=== PATIENT | male | born 1980 ===

== ENCOUNTER 2020-07-26 00:42 | Emergency (ER) | payer OTHER ==
--- NOTE | 2020-07-26 01:10 | ER Document Report ---
ED General - General Chief Complaint: Shortness Of Breath Stated Complaint: SHORTNESS OF BREATH Time Seen by Provider: 07/26/20 01:08 - HPI Notes: 39-year-old male presents with shortness of breath and a flulike illness. Patient states that he was recently in [place] and returned on Friday, he developed symptoms on 07/23/2020. He has been having a dry nonproductive cough, shortness of breath when he bends down to pick something up, congestion, myalgias, and multiple episodes of diarrhea per day. He was febrile with EMS 102.7, he received 975 mg of Tylenol prior to evaluation. EMS rapid Covid test was positive. Patient reports he is otherwise healthy, he has no major medical problems, he is a non-smoker. - Related Data Allergies/Adverse Reactions: No Known Allergies Allergy (Unverified 07/26/20 01:03) Past Medical History - General Information source: Patient - Social History Smoking Status: Never Smoker Chew tobacco use (# tins/day): No Frequency of alcohol use: None Drug Abuse: None Family History: Hypertension Review of Systems - Review of Systems Constitutional: Chills, Fever EENT: denies: Throat pain Cardiovascular: denies: Chest pain Respiratory: Cough, Short of breath Gastrointestinal: Diarrhea. denies: Abdominal pain Genitourinary: No symptoms reported Male Genitourinary: No symptoms reported Musculoskeletal: Muscle pain Skin: No symptoms reported Hematologic/Lymphatic: No symptoms reported Neurological/Psychological: No symptoms reported Physical Exam - Vital signs Vitals: Temp Pulse BP Pulse Ox 100.3 F 110 H 154/94 H 93 07/26/20 00:52 07/26/20 00:52 07/26/20 00:52 07/26/20 00:52 - General General appearance: Appears well, Alert In distress: None - HEENT Head: Normocephalic, Atraumatic Eyes: No: Scleral icterus Extraocular movements intact: Yes Pupils: PERRL - Respiratory Respiratory status: No: Labored, Tachypnea Breath sounds: Normal. No: Decreased air movement - Cardiovascular Rhythm: Regular, Tachycardia Heart sounds: Normal auscultation - Abdominal Inspection: Obese Tenderness: Nontender - Extremities General upper extremity: Normal ROM General lower extremity: Normal ROM. No: Edema - Neurological Neuro grossly intact: Yes Cognition: Normal Orientation: AAOx4 - Psychological Associated symptoms: Normal affect - Skin Skin Temperature: Warm Course - Re-evaluation Re-evalutation: 39-year-old male with symptoms consistent with viral infection, found to be positive for Covid via EMS rapid antigen test. Received Tylenol prior to arrival, expect fever to further downtrend. He is overall alert and nontoxic- appearing, his lungs are clear with good air movement, abdomen is soft. A chest x-ray was obtained which showed bilateral infiltrates consistent with Covid infection. Patient was given medications for symptomatic control on the emergency department. We discussed continued symptomatic care at home including vitamin/mineral supplementation. He verbalized understanding. Return precautions given, stable at time of discharge. - Vital Signs Vital signs: Temp Pulse Resp BP Pulse Ox 99.5 F 99 18 146/90 H 94 07/26/20 03:49 07/26/20 03:49 07/26/20 03:49 07/26/20 03:49 07/26/20 03:49 - Laboratory Results Critical Laboratory Results Reviewed: No Critical Results - Radiology Results Critical Radiology Results Reviewed: No Critical Results Discharge - Discharge Clinical Impression: COVID-19 virus infection Disposition: HOME, SELF-CARE Instructions: COVID-19 Guidance for Persons Under Investigation Additional Instructions: Continue supportive care at home. This consists of Tylenol, Motrin, Mucinex, Robitussin, etc. Be sure to drink plenty of fluids. You may also begin use of vitamin C, vitamin D and zinc. These can often be found in a multivitamin or can use products such as Zicam or Emergency-C. You may use the albuterol inhaler for shortness of breath. Return to the emergency department for any concerning or worsening symptoms.
[2020-07-26] MEDS ORDERED: GUAIFENESIN/D-METHORPHAN (200-20 MG) SYRUP 10 ML PO ONE ×2 (01:26→03:30)
[2020-07-26] MEDS ORDERED: GUAIFENESIN 600 MG TABLET.SA PO ONE ×2 (01:26→04:00)
[2020-07-26] MEDS ORDERED: IBUPROFEN 800 MG TABLET PO ONE ×2 (01:26→03:30)
[2020-07-26] MEDS ORDERED: ALBUTEROL SULFATE HFA (90 MCG/PUFF) 8 GM MDI (1 MDI/ER DISP) IH ONE ×2 (01:28→03:30)
--- NOTE | 2020-07-26 02:17 | RADIOLOGY REPORT (SQ) ---
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 Comparison: None available Findings: The cardiomediastinal silhouette is enlarged. No pneumothorax is seen. There bilateral interstitial airspace opacities, most pronounced within the lung bases. There is blunting of the costophrenic angle suggesting trace bilateral effusions. There is elevation of the right hemidiaphragm. Impression: There bilateral interstitial airspace opacities most pronounced at the lung bases. These may reflect developing infection.
[2020-07-26 05:15] VITALS: BP 141/88
== END 2020-07-26 06:10 | disposition home or self-care (01) ==
LOC: ER 00:42
DX: U07.1 COVID-19 (principal); R06.02 Shortness of breath
CPT/HCPCS: 99284; 87635; 71045; J3490 ×2; C9803

== ENCOUNTER 2020-07-26 15:54 | Inpatient (IN) | payer OTHER ==
[2020-07-26] MEDS ORDERED: CEFTRIAXONE 1 GM/D5W RTU 1 GM/50 ML RTUPB IV ONE (17:19)
[2020-07-26] MEDS ORDERED: ACETAMINOPHEN 325 MG TABLET PO ONE (17:19)
[2020-07-26] MEDS ORDERED: NORMAL SALINE IV ONE (17:19)
[2020-07-26] MEDS ORDERED: KETOROLAC TROMETHAMINE INJ/PF 30 MG/1 ML SDV IV ONE (17:20)
--- NOTE | 2020-07-26 17:23 | ER Document Report ---
ED Medical Screen (RME) - General Chief Complaint: Shortness Of Breath Stated Complaint: SHORTNESS OF BREATH Time Seen by Provider: 07/26/20 17:18 Information source: Patient - HPI Patient complains to provider of: Chest pain, shortness of breath Notes: 07/26/20 17:22 Patient here with complaints of chest pain, cough, shortness of breath, fever. He states he was seen in the ER last evening and had a chest x-ray but did not get the results of the chest x-ray and was discharged home. Covid was pending. In reviewing his records, patient noted to have bilateral interstitial airway disease on x-ray. Patient reports he has a prior history of blood clots. Not on blood thinners at this time. Exam: Patient with tachypnea in moderate distress. Tachycardia. Coarse breath sounds throughout. Skin warm and dry. An initial examination was made on the patient as part of the triage process, and it was determined a more comprehensive evaluation was necessary. Initial orders were placed and patient was transferred to another provider in the ED who assumed care and finished evaluation and plan. Based on the patient's vital signs including fever, tachycardia, tachypnea with pneumonia on yesterday's x-ray, I have initiated sepsis protocol. - Related Data Allergies/Adverse Reactions: No Known Allergies Allergy (Unverified 07/26/20 01:03) Physical Exam - Vital signs Vitals: Temp Pulse Resp BP Pulse Ox 103.2 F H 129 H 32 H 168/101 H 92 07/26/20 17:01 07/26/20 17:01 07/26/20 17:01 07/26/20 17:01 07/26/20 17:01 Course - Vital Signs Vital signs: Temp Pulse Resp BP Pulse Ox 103.2 F H 129 H 32 H 168/101 H 92 07/26/20 17:01 07/26/20 17:01 07/26/20 17:01 07/26/20 17:01 07/26/20 17:01
[2020-07-26 18:47] LABS: ABSOLUTE LYMPHOCYTES (AUTO) 0.6 10^3/uL (0.5-4.7); ABSOLUTE MONOCYTES (AUTO) 0.4 10^3/uL (0.1-1.4); ABSOLUTE NEUT (AUTO) 5.3 10^3/uL (1.7-8.2); BASOPHILS % (AUTO) 0.4 % (0-2); HEMATOCRIT 47.5 % (37.9-51.0); LYMPHOCYTES % (AUTO) 10.1 % (13-45); MEAN CORPUSCULAR HEMOGLOBIN 28.5 pg (27.0-33.4); MEAN CORPUSCULAR HGB CONC 33.7 g/dL (32.0-36.0); MEAN CORPUSCULAR VOLUME 85 fl (80-97); MONOCYTES % (AUTO) 6.6 % (3-13); RED BLOOD COUNT 5.62 10^6/uL (4.35-5.55); RED CELL DISTRIBUTION WIDTH 14.1 % (11.5-14.0); SEGMENTED NEUTROPHILS % (AUTO) 82.9 % (42-78); TOTAL CELLS COUNTED % (AUTO) 100 %; WHITE BLOOD COUNT 6.3 10^3/uL (4.0-10.5)
[2020-07-26 18:52] LABS: INTERNATIONAL RATION (INR) 1.07; PARTIAL THROMBOPLASTIN TIME 32.3 SEC (23.5-35.8); PROTHROMBIN TIME 14.1 SEC (11.4-15.4)
[2020-07-26 19:00] LABS: ALBUMIN 3.7 g/dL (3.5-5.0); ALKALINE PHOSPHATASE 75 U/L (38-126); ANION GAP 6 (5-19); ASPARTATE AMINO TRANSFERASE 59 U/L (17-59); BILIRUBIN,DIRECT 0.4 mg/dL (0.0-0.4); BLOOD UREA NITROGEN 16 mg/dL (7-20); CALCIUM 8.5 mg/dL (8.4-10.2); CARBON DIOXIDE 32 mmol/L (22-30); CHLORIDE 99 mmol/L (98-107); GLUCOSE 115 mg/dL (75-110); POTASSIUM 4.8 mmol/L (3.6-5.0); TOTAL PROTEIN 7.5 g/dL (6.3-8.2)
[2020-07-26 19:17] LABS: PLATELET COUNT 91 10^3/uL (150-450)
--- NOTE | 2020-07-26 19:53 | RADIOLOGY REPORT (SQ) ---
EXAM DESCRIPTION: CTA CHEST IMAGES COMPLETED DATE/TIME: 07/26/2020 7:34 pm REASON FOR STUDY: Chest pain, shortness of breath, tachycardia COMPARISON: None. TECHNIQUE: CT scan of the chest performed using helical scanning technique with dynamic intravenous contrast injection. Images reviewed with lung, soft tissue and bone windows. Reconstructed coronal and sagittal MPR images reviewed. Additional 3 dimensional post-processing performed to develop Maximal Intensity Projection images ([place] P). All images stored on PACS. All CT scanners at this facility use dose modulation, iterative reconstruction, and/or weight based d osing when appropriate to reduce radiation dose to as low as reasonably achievable (ALARA). [facility]: Dose Right [facility]: CareDose [facility]: Dose Right [facility]: Teradose 4D [facility]: [employer] CONTRAST TYPE AND DOSE: contrast/concentration: Isovue 350.00 mmol/ml; Total Contrast Delivered: 31. 6 ml; Total Saline Delivered: 70.7 ml Contrast bolus adequate for pulmonary arteries and aorta. RENAL FUNCTION: None required. The patient is less than 50 years old. RADIATION DOSE: CT Rad equipment meets quality standard of care and radiation dose reduction techniq ues were employed. CTDIvol: 15.0 - 15.5 mGy. DLP: 601 mGy-cm. . LIMITATIONS: None. FINDINGS: LUNGS AND PLEURA: Bilateral areas of ground-glass opacification most prominent in the lowe r lobes. In the upper lung navarro these infiltrates are generally peripheral. AORTA AND GREAT VESSELS: No aneurysm. No dissection. HEART: No pericardial effusion. No significant coronary artery calcifications. PULMONARY ARTERIES: No emboli visualized in the main pulmonary arteries or the segmental branches. HILAR AND MEDIASTINAL STRUCTURES: No identified masses or abnormal nodes. HARDWARE: None in the chest. UPPER ABDOMEN: No significant findings. Limited exam. THYROID AND OTHER SOFT TISSUES: No masses. No adenopathy. BONES: No acute or significant finding. 3D MIPS: Confirm above findings. OTHER: No other significant finding. IMPRESSION: 1. There is no pulmonary embolus. There is no aortic aneurysm or dissection. 2. Bilateral ground-glass opacification suggesting an atypical infectious/ inflammatory process such as COVID-19 pneumonia. COMMENT: Quality ID # [id number]: Final reports with documentation of one or more dose reduction techniques (e.g., Automated exposure control, adjustment of the mA and/or kV according to patient size, use of iterative reconstruction technique) TECHNICAL DOCUMENTATION: JOB ID: [id number] 2010 [facility] [employer]- All Rights Reserved Reading location - IP/workstation name: [email or web address]
[2020-07-26] MEDS ORDERED: DEXAMETHASONE SOD PHOS INJ 10 MG/1 ML VIAL IV ONE (23:00)
--- NOTE | 2020-07-26 23:06 | ER Document Report ---
ED Respiratory Problem - General Chief Complaint: Shortness Of Breath Stated Complaint: SHORTNESS OF BREATH Time Seen by Provider: 07/26/20 17:18 Mode of Arrival: Medic Information source: Patient Notes: 39-year-old male presented to ED for complaint of chest pain cough congestion fever. He was seen during the night in the ED a chest x-ray was done and he was discharged home with Covid pending. He does have Covid type markings on lungs. He was Covid positive via EMS on the way back to the emergency room. He temp was 103 when he came up with septic work-up was started. 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 Troponin was negative lactic acids were negative. He is afebrile at this time. He does have an albuterol inhaler at home we will give him a treatment with some steroids time to continue using his albuterol inhaler to use Pepcid vitamin D3 and increase his p.o. fluids. He is to return to the ED for any increase in symptoms or difficulty breathing. Constitutional: Negative for fever. HENT: Negative for sore throat. Eyes: Negative for visual changes. Cardiovascular: As he is having chest pain due to cough. He was seen in triage that started a septic work-up as well as a CTA due to the chest pain and the fever 103 and his prior history of DVTs. He states he is not having chest pain at this time. When encouraged to slow his breathing he can breathe down at 1819 otherwise the stomach varies he is a very obese man. He states he does have some undiagnosed sleep apnea. He states he has been using his albuterol but does not seem to have any change with that. CT showed no pulmonary emboli no aortic aneurysm or dissection and bilateral grass ground opacity suggesting COVID-19 pneumonia. Respiratory: Patient is short of breath tachypneic but is able to feel his breathing actually feels much better when he does. Gastrointestinal: Negative for abdominal pain, vomiting or diarrhea. Genitourinary: Negative for dysuria. Musculoskeletal: Negative for back pain. Skin: Negative for rash. Neurological: Negative for headaches, weakness or numbness. 10 point ROS negative except as marked above and in HPI. VITAL SIGNS: Within normal limits. GENERAL: No acute distress, non-toxic appearance. HEAD: Normal with no signs of head trauma. EYES: PERRLA, EOMI, conjunctiva normal, no discharge. EARS: Hearing grossly intact. NOSE: Normal. THROAT: Oropharynx is normal. NECK: Normal range of motion, no tenderness, supple, no lymphadenopathy, No adenopathy, no JVD. CHEST: Mild rhonchi with throughout no wheezes. Afebrile at this time CT shows Covid pneumonia. CARDIAC: Regular rate and rhythm. S1 and S2, without murmurs, gallops, or r ubs. VASCULAR: No Edema. Peripheral pulses normal and equal in all extremities. ABDOMEN: Normal and soft with no tenderness, no masses or pulsatile masses. GASTROINTESTINAL: Bowel sounds normal GENITOURINARY: Normal, No tenderness LYMPATHTIC: No lymphadenopathy noted. MUSCULOSKELETAL: Good range of motion of all major joints. Extremities without clubbing, cyanosis or edema. NEUROLOGICAL: Alert and oriented x 3. No focal sensory or strength deficits. Speech normal. Follows commands appropriately. PSYCHIATRIC: Normal Affect, judgement and mood. SKIN: Normal appearance with no rashes or lesions. - HPI Patient complains to provider of: Chest pain, Cough Onset: Yesterday Duration: Continuous Initiating Event: Other - seen last night for same Quality of pain: Achy Severity: Moderate Pain Level: 3 Cough: Nonproductive Sputum amount: None Associated symptoms: Congestion, Cough, Fever, Runny nose, Sinus pain/pressure, Other - body aches Similar symptoms previously: Yes Recently seen / treated by doctor: Yes - Related Data Allergies/Adverse Reactions: No Known Allergies Allergy (Unverified 07/26/20 01:03) Past Medical History - General Information source: Patient - Social History Smoking Status: Never Smoker Frequency of alcohol use: None Drug Abuse: None Lives with: Family Family History: Hypertension Patient has suicidal ideation: No Patient has homicidal ideation: No Physical Exam - Vital signs Vitals: Temp Pulse Resp BP Pulse Ox 103.2 F H 129 H 32 H 168/101 H 92 07/26/20 17:01 07/26/20 17:01 07/26/20 17:01 07/26/20 17:01 07/26/20 17:01 Course - Re-evaluation Re-evalutation: 07/27/20 08:[address] Gordon concerning this patient's shortness of breath in the setting every time I got him up to move. He was tachypneic with tachycardia. He was diagnosed with Covid yesterday and discharged home and then came in again with severe shortness of breath and temp over 103. He was treated with Tylenol septic work-up completed which was negative and when I attempted to get him up to walking you be able to discharge him home he became very tachypneic with respiratory rate of 40 O2 sats in the 80s and was not able to maintain a O2 sat while trying to walk. I did place him on 2 L of O2 around 950 and called the hospitalist Dr Mancia to have him admitted. He states he would come down and evaluate him in admitting. When he did come down to evaluate him he. He stated that he would put him in on observation and that the patient did not need the oxygen. So the oxygen was taken off. Patient was admitted to hospitalist services. - Vital Signs Vital signs: Temp Pulse Resp BP Pulse Ox 98.9 F 105 H 42 H 158/98 H 98 07/27/20 04:46 07/27/20 04:46 07/27/20 04:46 07/27/20 04:46 07/27/20 04:46 - Laboratory Results Result Diagrams: 07/27/20 06:25 07/27/20 06:25 Laboratory Results Interpreted: 07/26/20 07/26/20 17:51 17:51 RBC 5.62 H RDW 14.1 H Plt Count 91 L Lymph % (Auto) 10.1 L Seg Neutrophils % 82.9 H Sodium 136.7 L Carbon Dioxide 32 H Glucose 115 H ALT 58 H Critical Laboratory Results Reviewed: No Critical Results - Radiology Results Critical Radiology Results Reviewed: No Critical Results Discharge - Discharge Clinical Impression: COVID-19 virus infection, Pneumonia due to COVID-19 virus Disposition: ADMITTED INPATIENT Admitting Provider: Blanche (Hospitalist) Unit Admitted: Medical Floor
--- NOTE | 2020-07-26 23:28 | EKG REPORT ---
SEVERITY:- OTHERWISE NORMAL ECG - SINUS TACHYCARDIA : Confirmed by: Kraig Galdamez 26-Jul-2020 23:27:36
[2020-07-27] MEDS ORDERED: LORAZEPAM INJ 2 MG/1 ML VIAL IV ONE (01:09)
[2020-07-27] MEDS ORDERED: ONDANSETRON 4 MG TAB.RAPDIS PO PRN (01:34)
[2020-07-27] MEDS ORDERED: ONDANSETRON HCL INJ/PF 4 MG/2 ML SDV IV PRN (01:34)
[2020-07-27] MEDS ORDERED: ACETAMINOPHEN 325 MG TABLET PO PRN (01:34)
[2020-07-27] MEDS ORDERED: IVERMECTIN 3 MG TABLET PO SCH (01:45)
[2020-07-27] MEDS ORDERED: DOXYCYCLINE HYCLATE INJ 100 MG VIAL IV PRN (01:45)
[2020-07-27] MEDS ORDERED: DOXYCYCLINE HYCLATE 100 MG in DEXTROSE 5%-WATER 250 ML IV ONE (02:00)
[2020-07-27] MEDS ORDERED: METHYLPREDNISOLONE INJ 40 MG/1 ML SDV IV ONE (02:00)
[2020-07-27] MEDS ORDERED: MELATONIN 5 MG TABLET PO ONE (02:15)
[2020-07-27] MEDS ORDERED: VITAMIN B COMPLEX TABLET PO ONE (02:15)
[2020-07-27] MEDS ORDERED: ASCORBIC ACID 500 MG TABLET PO ONE (02:15)
[2020-07-27] MEDS ORDERED: CHOLECALCIFEROL (D3) 1,000 UNIT (25 MCG) TABLET PO ONE (02:15)
[2020-07-27] MEDS ORDERED: ZINC SULFATE 220 MG CAPSULE PO ONE (02:15)
--- NOTE | 2020-07-27 02:44 | PDOC H&P ---
History of Present Illness Admission Date/PCP: 07/27/20 00:42 History of Present Illness: MESSI CHEEMA is a 39 year old male with no past medical history who presents with a 5 day history of progressive SOB/STOLL/dry cough which developed while he was in [place] for a jewish conference, seen in ED on 1 AM and discharged home with suspected covid 19 PNA, given rx for steroids. Pt returned to ED late night 07/26 with persistent sx's and tachypnea, desat with ambulation to 88%. No acute findings on labs. CTPA showed likely viral pneumonia, no PE. Pt requiring 2L NC with sat 98%. Pt states he believes he has undiagnosed SULEMAN. Admitted for observation and further tx. Past Medical History Cardiac Medical History: Reports: None Pulmonary Medical History: Reports: Sleep Apnea Past Surgical History Past Surgical History: Reports: Other - hemorrhoid surgery Social History Information Source: Patient, Emergency Med Personnel Lives with: Family Smoking Status: Never Smoker Hx Recreational Drug Use: No Drugs: None Hx Prescription Drug Abuse: No - Advance Directive Resuscitation Status: Full Code Surrogate healthcare decision maker:: Admitting diagnosis: COVID-19 pneumonia All aspects of code status discussed with patient/POA including cardioversion, chest compressions, and intubation and the patient/POA indicated they wish to be full code MPOA is designated as:MotherMaren Time spent: Greater than 16 minutes Family History Family History: Hypertension Parental Family History Reviewed: Yes Children Family History Reviewed: Yes Sibling(s) Family History Reviewed.: Yes Medication/Allergy Allergies/Adverse Reactions: No Known Allergies Allergy (Unverified 07/26/20 01:03) Review of Systems All systems: reviewed and no additional remarkable complaints except as stated - Per HPI otherwise negative Physical Exam Vital Signs: Temp Pulse Resp BP Pulse Ox 99.3 F 103 H 35 H 151/101 H 99 07/26/20 22:56 07/27/20 00:15 07/27/20 00:15 07/27/20 00:15 07/27/20 00:15 Intake & Output 07/25/20 07/26/20 07/27/20 06:59 06:59 06:59 Intake Total 3720 Balance 3720 Weight 122.47 kg Exam: General appearance: PRESENT: no acute distress, well-developed, well-nourished, acutely ill-appearing -Filipino male, obese with BMI 43.6 Head exam: PRESENT: atraumatic, normocephalic Eye exam: PRESENT: conjunctiva pink. ABSENT: scleral icterus Mouth exam: PRESENT: moist Respiratory exam: PRESENT: Very scant rhonchi in lungs ABSENT: rales, wheezes Cardiovascular exam: PRESENT: RRR. ABSENT: diastolic murmur, rubs, systolic murmur GI/Abdominal exam: PRESENT: normal bowel sounds, soft. ABSENT: distended, guarding, mass, organolmegaly, rebound, tenderness Neurological exam: PRESENT: alert, awake, oriented to person, oriented to place, oriented to time, oriented to situation Psychiatric exam: PRESENT: appropriate affect, normal mood Skin exam: PRESENT: dry, intact, warm Results Laboratory Results: 07/26/20 17:51 07/26/20 17:51 07/26/20 07/26/20 07/26/20 17:51 17:51 17:51 WBC 6.3 RBC 5.62 H Hgb 16.0 Hct 47.5 MCV 85 MCH 28.5 MCHC 33.7 RDW 14.1 H Plt Count 91 L Seg Neutrophils % 82.9 H Sodium 136.7 L Potassium 4.8 Chloride 99 Carbon Dioxide 32 H Anion Gap 6 BUN 16 Creatinine 1.15 Est GFR ( Amer) > 60 Glucose 115 H Lactic Acid 1.5 Calcium 8.5 Total Bilirubin 1.0 AST 59 Alkaline Phosphatase 75 Total Protein 7.5 Albumin 3.7 07/26/20 20:52 WBC RBC Hgb Hct MCV MCH MCHC RDW Plt Count Seg Neutrophils % Sodium Potassium Chloride Carbon Dioxide Anion Gap BUN Creatinine Est GFR ( Amer) Glucose Lactic Acid 1.0 Calcium Total Bilirubin AST Alkaline Phosphatase Total Protein Albumin 07/26/20 17:51 Troponin I 0.038 Impressions: Chest/Abdomen CTA 07/26/20 17:20 IMPRESSION: 1. There is no pulmonary embolus. There is no aortic aneurysm or dissection. 2. Bilateral ground-glass opacification suggesting an atypical infectious/ inflammatory process such as COVID-19 pneumonia. Assessment and Plan - Diagnosis (1) Pneumonia due to COVID-19 virus Is this a current diagnosis for this admission?: Yes Plan: -Symptoms/history consistent with covid-19 infection -Covid-19 test: 07/27 -CXR showed: bilat infiltrates -CTPA showed: viral pneumonia ground glass opacities -standard of care vitamin supplements: zinc, ascorbic acid, vitamin d, melatonin -maintain magnesium of 2 mg/dL or higher -Current literature does not show clear benefit from the use of remdesivir, plaquenil, and convalescent plasma -supplemental oxygen and BiPAP/CPAP as needed -prn combivent/nebs as able -do not hold anticoagulation unless actively bleeding or platelet count <50 -close monitoring for acute respiratory decline requiring ICU transfer and intubation -consider ivermectin/doxycycline combination therapy (2) Acute hypoxemic respiratory failure Is this a current diagnosis for this admission?: Yes Plan: -Due to Covid pneumonia as above Nebs as needed Supplemental oxygen maintain saturation of 92% or above (3) Obesity, Class III, BMI 40-49.9 (morbid obesity) Is this a current diagnosis for this admission?: Yes Plan: Needs weight loss (4) SULEMAN (obstructive sleep apnea) Is this a current diagnosis for this admission?: Yes Plan: Needs outpatient sleep study - Time Time Spent with patient: 35 or more minutes Medications reviewed and adjusted accordingly: Yes Anticipated Discharge Disposition: Home, Self Care Anticipated Discharge Timeframe: within 48 hours
[2020-07-27] MEDS ORDERED: IVERMECTIN 3 MG TABLET ONE (03:58)
[2020-07-27] MEDS: IVERMECTIN 3 MG TABLET PO SCH (04:03)
[2020-07-27 06:56] LABS: ABSOLUTE LYMPHOCYTES (AUTO) 0.5 10^3/uL (0.5-4.7); ABSOLUTE MONOCYTES (AUTO) 0.1 10^3/uL (0.1-1.4); ABSOLUTE NEUT (AUTO) 4.6 10^3/uL (1.7-8.2); BASOPHILS % (AUTO) 0.6 % (0-2); HEMATOCRIT 42.7 % (37.9-51.0); HEMOGLOBIN 14.5 g/dL (13.5-17.0); LYMPHOCYTES % (AUTO) 9.9 % (13-45); MEAN CORPUSCULAR HEMOGLOBIN 28.7 pg (27.0-33.4); MEAN CORPUSCULAR HGB CONC 33.9 g/dL (32.0-36.0); MEAN CORPUSCULAR VOLUME 85 fl (80-97); MONOCYTES % (AUTO) 2.2 % (3-13); RED BLOOD COUNT 5.04 10^6/uL (4.35-5.55); RED CELL DISTRIBUTION WIDTH 14.1 % (11.5-14.0); SEGMENTED NEUTROPHILS % (AUTO) 87.3 % (42-78); TOTAL CELLS COUNTED % (AUTO) 100 %; WHITE BLOOD COUNT 5.3 10^3/uL (4.0-10.5)
[2020-07-27 07:09] LABS: ANION GAP 5 (5-19); BLOOD UREA NITROGEN 15 mg/dL (7-20); C-REACTIVE PROTEIN 80.8 mg/L (<10.0); CALCIUM 7.7 mg/dL (8.4-10.2); CARBON DIOXIDE 26 mmol/L (22-30); CHLORIDE 107 mmol/L (98-107); GLUCOSE 132 mg/dL (75-110); PHOSPHORUS 2.9 mg/dL (2.5-4.5); POTASSIUM 4.8 mmol/L (3.6-5.0)
[2020-07-27 07:28] LABS: PLATELET COUNT 94 10^3/uL (150-450)
[2020-07-27] MEDS ORDERED: CALCIUM GLUCONATE 1000 MG/10 ML INJ IV ONE (08:30)
[2020-07-27] MEDS: IPRATROPIUM/ALBUTEROL 0.5-2.5 MG/3 ML AMPUL NEB PRN (09:00)
[2020-07-27] MEDS: CHOLECALCIFEROL (D3) 1,000 UNIT (25 MCG) TABLET PO SCH (09:19)
[2020-07-27] MEDS: ASCORBIC ACID 500 MG TABLET PO SCH ×2 (09:19→17:12)
[2020-07-27] MEDS: VITAMIN B COMPLEX TABLET PO SCH (09:19)
[2020-07-27] MEDS: DOCUSATE SODIUM 100 MG CAPSULE PO SCH (09:20)
[2020-07-27] MEDS: ZINC SULFATE 220 MG CAPSULE PO SCH (09:35)
[2020-07-27] MEDS: ENOXAPARIN SODIUM INJ 40 MG/0.4 ML DISP.SYRIN SUBCUT SCH ×2 (09:35→10:15)
[2020-07-27] MEDS: METHYLPREDNISOLONE INJ 40 MG/1 ML SDV IV SCH (17:12)
[2020-07-27] MEDS: MELATONIN 5 MG TABLET PO SCH (21:22)
[2020-07-27 22:47] LABS: APPEARANCE,URINE SLIGHTLY-CLOUDY; BILIRUBIN,URINE NEGATIVE (NEGATIVE); GLUCOSE, URINE 150 mg/dL (NEGATIVE); KETONES,URINE TRACE mg/dL (NEGATIVE); PROTEIN,URINE 100 mg/dL (NEGATIVE); URINE SPECIFIC GRAVITY 1.029
[2020-07-27 22:49] LABS: COLOR,URINE YELLOW
[2020-07-27] MEDS: DOXYCYCLINE HYCLATE 100 MG in DEXTROSE 5%-WATER 250 ML IV SCH (22:52)
--- NOTE | 2020-07-27 23:37 | EKG REPORT ---
SEVERITY:- BORDERLINE ECG - SINUS TACHYCARDIA BORDERLINE PROLONGED QT INTERVAL NONSPECIFIC ST-T CHANGES : Confirmed by: Kraig Galdamez 27-Jul-2020 23:36:18
[2020-07-28] MEDS: METHYLPREDNISOLONE INJ 40 MG/1 ML SDV IV SCH (05:21)
[2020-07-28 07:22] LABS: ABSOLUTE MONOCYTES (AUTO) 0.7 10^3/uL (0.1-1.4); ABSOLUTE NEUT (AUTO) 6.9 10^3/uL (1.7-8.2); BASOPHILS % (AUTO) 0.1 % (0-2); EOSINOPHILS % (AUTO) 0.1 % (0-6); HEMATOCRIT 44.2 % (37.9-51.0); HEMOGLOBIN 14.8 g/dL (13.5-17.0); LYMPHOCYTES % (AUTO) 11.5 % (13-45); MEAN CORPUSCULAR HEMOGLOBIN 28.5 pg (27.0-33.4); MEAN CORPUSCULAR HGB CONC 33.5 g/dL (32.0-36.0); MEAN CORPUSCULAR VOLUME 85 fl (80-97); MONOCYTES % (AUTO) 8.3 % (3-13); PLATELET COUNT 127 10^3/uL (150-450); RED BLOOD COUNT 5.21 10^6/uL (4.35-5.55); TOTAL CELLS COUNTED % (AUTO) 100 %; WHITE BLOOD COUNT 8.7 10^3/uL (4.0-10.5)
[2020-07-28 07:31] LABS: ANION GAP 6 (5-19); BLOOD UREA NITROGEN 15 mg/dL (7-20); CARBON DIOXIDE 29 mmol/L (22-30); CHLORIDE 104 mmol/L (98-107); GLUCOSE 124 mg/dL (75-110); PHOSPHORUS 3.4 mg/dL (2.5-4.5); POTASSIUM 4.9 mmol/L (3.6-5.0)
[2020-07-28] MEDS ORDERED: INFLUENZA QUAD (6MOS+) 2020-21 VAC 0.5 ML SYR IM ONE (08:00)
[2020-07-28] MEDS: DOCUSATE SODIUM 100 MG CAPSULE PO SCH (09:54)
[2020-07-28] MEDS: CHOLECALCIFEROL (D3) 1,000 UNIT (25 MCG) TABLET PO SCH (09:54)
[2020-07-28] MEDS: VITAMIN B COMPLEX TABLET PO SCH (09:54)
[2020-07-28] MEDS: ASCORBIC ACID 500 MG TABLET PO SCH ×2 (09:55→17:30)
[2020-07-28] MEDS: ENOXAPARIN SODIUM INJ 40 MG/0.4 ML DISP.SYRIN SUBCUT SCH (09:55)
[2020-07-28] MEDS: ZINC SULFATE 220 MG CAPSULE PO SCH (09:57)
[2020-07-28] MEDS ORDERED: LISINOPRIL 10 MG TABLET PO SCH (11:00)
[2020-07-28] MEDS: DEXAMETHASONE 4 MG TABLET PO SCH (11:19)
--- NOTE | 2020-07-28 13:26 | PDOC PROGRESS REPORT ---
Subjective Date:: 07/28/20 Subjective:: MESSI CHEEMA is a 39 year old male with no past medical history who presents with a 5 day history of progressive SOB/STOLL/dry cough which developed while he was in [place] for a denominational conference, seen in ED on 1/6 AM and discharged home with suspected covid 19 PNA, given rx for steroids. Pt returned to ED late night 07/26 with persistent sx's and tachypnea, desat with ambulation to 88%. No acute findings on labs. CTPA showed likely viral pneumonia, no PE. Pt requiring 2L NC with sat 98%. Pt states he believes he has undiagnosed SULEMAN. Admitted for observation and further tx. 07/28/2020. No acute events overnight. Patient stated that he could not get much sleep last night, still complaining of some breath, nonproductive cough and generalized fatigue , otherwise denies any fever, chills, nausea, vomiting, diarrhea, constipation or any urinary symptoms. Reason For Visit: COVID-19, PNEUMONIA ACUTE HYPOXEMIC RESPIRATORY Physical Exam Vital Signs: Temp Pulse Resp BP Pulse Ox 99.1 F 105 H 24 H 158/106 H 90 L 07/28/20 09:48 07/28/20 10:11 07/28/20 08:29 07/28/20 10:11 07/28/20 08:29 Intake & Output 07/27/20 07/28/20 07/29/20 06:59 06:59 06:59 Intake Total 3970 1440 Output Total 1175 Balance 3970 265 Weight 133.1 kg 133.1 kg General appearance: PRESENT: no acute distress, morbidly obese, well-developed, well-nourished Head exam: PRESENT: atraumatic, normocephalic Respiratory exam: PRESENT: decreased breath sounds. ABSENT: rales, rhonchi, wheezes Cardiovascular exam: PRESENT: RRR. ABSENT: diastolic murmur, rubs, systolic murmur GI/Abdominal exam: PRESENT: normal bowel sounds, soft. ABSENT: distended, guarding, mass, organolmegaly, rebound, tenderness Neurological exam: PRESENT: alert, awake, oriented to person, oriented to place, oriented to time, oriented to situation, CN II-XII grossly intact. ABSENT: motor sensory deficit Results Laboratory Results: 07/28/20 06:07 07/28/20 06:07 07/27/20 07/28/20 07/28/20 15:30 06:07 06:07 WBC 8.7 RBC 5.21 Hgb 14.8 Hct 44.2 MCV 85 MCH 28.5 MCHC 33.5 RDW 14.0 Plt Count 127 L Seg Neutrophils % 80.0 H Sodium 138.8 Potassium 4.9 Chloride 104 Carbon Dioxide 29 Anion Gap 6 BUN 15 Creatinine 0.77 Est GFR ( Amer) > 60 Glucose 124 H Calcium 8.0 L Phosphorus 3.4 Magnesium 2.3 Urine Color YELLOW Urine Appearance SLIGHTLY-CLOUDY Urine pH 6.0 Ur Specific [place] 1.029 Urine Protein 100 H Urine Glucose (UA) 150 H Urine Ketones TRACE H Urine Blood NEGATIVE Urine RBC (Auto) 3 07/26/20 17:51 Troponin I 0.038 Impressions: Chest/Abdomen CTA 07/26/20 17:20 IMPRESSION: 1. There is no pulmonary embolus. There is no aortic aneurysm or dissection. 2. Bilateral ground-glass opacification suggesting an atypical infectious/ inflammatory process such as COVID-19 pneumonia. Assessment and Plan - Diagnosis (1) Pneumonia due to COVID-19 virus Is this a current diagnosis for this admission?: Yes Plan: Symptoms/history consistent with covid-19 infection Covid-19 test: 07/27 CXR showed: bilat infiltrates CTPA showed: viral pneumonia ground glass opacities standard of care vitamin supplements: zinc, ascorbic acid, vitamin d, melatonin maintain magnesium of 2 mg/dL or higher Current literature does not show clear benefit from the use of remdesivir, plaquenil, and convalescent plasma supplemental oxygen and BiPAP/CPAP as needed prn combivent/nebs as able do not hold anticoagulation unless actively bleeding or platelet count <50 close monitoring for acute respiratory decline requiring ICU transfer and intubation consider ivermectin/doxycycline combination therapy (2) Acute hypoxemic respiratory failure Is this a current diagnosis for this admission?: Yes Plan: Still requiring supplemental oxygen, SPO2 WNL on 2 L nasal cannula. Due to Covid pneumonia as above Plan as per #1. (3) SULEMAN (obstructive sleep apnea) Is this a current diagnosis for this admission?: Yes Plan: Nocturnal CPAP. Outpatient follow-up for nocturnal polysomnography. Weight loss advised. (4) Obesity, Class III, BMI 40-49.9 (morbid obesity) Is this a current diagnosis for this admission?: Yes Plan: BMI 47.4. Diet and lifestyle modification recommended. - Time Time Spent with patient: 25-34 minutes Anticipated Discharge Disposition: Home, Self Care Anticipated Discharge Timeframe: within 24 hours
[2020-07-28] MEDS: IPRATROPIUM/ALBUTEROL 0.5-2.5 MG/3 ML AMPUL NEB PRN (13:32)
[2020-07-28] MEDS ORDERED: LISINOPRIL 10 MG TABLET PO ONE (15:00)
[2020-07-28] MEDS: DOXYCYCLINE HYCLATE 100 MG in DEXTROSE 5%-WATER 250 ML IV SCH (21:22)
[2020-07-28] MEDS: MELATONIN 5 MG TABLET PO SCH (21:24)
[2020-07-29] MEDS: IVERMECTIN 3 MG TABLET PO SCH (01:43)
[2020-07-29] MEDS: LABETALOL HCL INJ 20 MG/4 ML DISP.SYRIN IV PRN ×3 (04:08→21:28)
[2020-07-29 05:52] LABS: ABSOLUTE MONOCYTES (AUTO) 1.2 10^3/uL (0.1-1.4); ABSOLUTE NEUT (AUTO) 7.8 10^3/uL (1.7-8.2); BASOPHILS % (AUTO) 0.2 % (0-2); HEMATOCRIT 44.4 % (37.9-51.0); LYMPHOCYTES % (AUTO) 10.4 % (13-45); MEAN CORPUSCULAR HGB CONC 33.9 g/dL (32.0-36.0); MEAN CORPUSCULAR VOLUME 86 fl (80-97); MONOCYTES % (AUTO) 11.7 % (3-13); PLATELET COUNT 152 10^3/uL (150-450); RED BLOOD COUNT 5.19 10^6/uL (4.35-5.55); RED CELL DISTRIBUTION WIDTH 14.3 % (11.5-14.0); SEGMENTED NEUTROPHILS % (AUTO) 77.7 % (42-78); TOTAL CELLS COUNTED % (AUTO) 100 %
[2020-07-29 06:21] LABS: ANION GAP 6 (5-19); BLOOD UREA NITROGEN 19 mg/dL (7-20); C-REACTIVE PROTEIN 33.4 mg/L (<10.0); CALCIUM 8.5 mg/dL (8.4-10.2); CARBON DIOXIDE 29 mmol/L (22-30); CHLORIDE 105 mmol/L (98-107); GLUCOSE 122 mg/dL (75-110); POTASSIUM 4.4 mmol/L (3.6-5.0)
[2020-07-29] MEDS ORDERED: PHARMACY COMMUNICATION ORDER MC NR (07:30)
[2020-07-29] MEDS: LISINOPRIL 10 MG TABLET PO SCH (09:18)
[2020-07-29] MEDS: VITAMIN B COMPLEX TABLET PO SCH (09:19)
[2020-07-29] MEDS: ASCORBIC ACID 500 MG TABLET PO SCH ×2 (09:19→17:27)
[2020-07-29] MEDS: CHOLECALCIFEROL (D3) 1,000 UNIT (25 MCG) TABLET PO SCH (09:19)
[2020-07-29] MEDS: DEXAMETHASONE 4 MG TABLET PO SCH (09:19)
[2020-07-29] MEDS: ENOXAPARIN SODIUM INJ 40 MG/0.4 ML DISP.SYRIN SUBCUT SCH (09:19)
[2020-07-29] MEDS: DOCUSATE SODIUM 100 MG CAPSULE PO SCH (09:20)
[2020-07-29] MEDS: ZINC SULFATE 220 MG CAPSULE PO SCH (09:20)
[2020-07-29] MEDS ORDERED: LISINOPRIL 10 MG TABLET PO SCH (10:00)
[2020-07-29] MEDS ORDERED: AZITHROMYCIN 250 MG TABLET PO ONE (11:17)
--- NOTE | 2020-07-29 11:35 | PDOC PROGRESS REPORT ---
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 Pt returned to ED late night 07/26 with persistent sx's and tachypnea, desat with ambulation to 88%. No acute findings on labs. CTPA showed likely viral pneumonia, no PE. Pt requiring 2L NC with sat 98%. Pt states he believes he has undiagnosed SULEMAN. Admitted for observation and further tx. 07/28/2020. No acute events overnight. Patient stated that he could not get much sleep last night, still complaining of some breath, nonproductive cough and generalized fatigue , otherwise denies any fever, chills, nausea, vomiting, diarrhea, constipation or any urinary symptoms. 07/29/2020. No acute events overnight, patient is still remains hypoxic on room air, saw patient this morning while getting out of the restroom, noted to be very tachypneic and dyspneic,looking tired, stating that he gets very short of breath with minimal exertion, he is also complaining of right calf swelling and pain, stating that for years ago he had a DVT in the right lower extremity and he thinks he may have another DVT, denies any fever, chills, nausea, vomiting, diarrhea, constipation or any urinary symptoms. Reason For Visit: COVID-19, PNEUMONIA ACUTE HYPOXEMIC RESPIRATORY Physical Exam Vital Signs: Temp Pulse Resp BP Pulse Ox 98.9 F 103 H 23 H 176/113 H 92 07/29/20 09:21 07/29/20 09:21 07/29/20 09:21 07/29/20 09:21 07/29/20 09:21 Intake & Output 07/28/20 07/29/20 07/30/20 06:59 06:59 06:59 Intake Total 1440 1512 Output Total 1175 250 Balance 265 1262 Weight 133.1 kg 132.1 kg 132.1 kg General appearance: PRESENT: other - Moderate distress Head exam: PRESENT: atraumatic, normocephalic Respiratory exam: PRESENT: clear to auscultation mateusz, symmetrical, tachypnea. ABSENT: rales, rhonchi, wheezes Cardiovascular exam: PRESENT: RRR. ABSENT: diastolic murmur, rubs, systolic murmur GI/Abdominal exam: PRESENT: normal bowel sounds, soft. ABSENT: distended, guarding, mass, organolmegaly, rebound, tenderness Extremities exam: PRESENT: full ROM, other - Right calf pain.. ABSENT: calf tenderness, clubbing, pedal edema Neurological exam: PRESENT: alert, awake, oriented to person, oriented to place, oriented to time, oriented to situation, CN II-XII grossly intact. ABSENT: motor sensory deficit Results Laboratory Results: 07/29/20 05:26 07/29/20 05:26 07/29/20 07/29/20 07/29/20 05: 05: 09:08 WBC 10.0 RBC 5.19 Hgb 15.0 Hct 44.4 MCV 86 MCH 29.0 MCHC 33.9 RDW 14.3 H Plt Count 152 Seg Neutrophils % 77.7 Sodium 139.7 Potassium 4.4 Chloride 105 Carbon Dioxide 29 Anion Gap 6 BUN 19 Creatinine 0.75 Est GFR ( Amer) > 60 Glucose 122 H Calcium 8.5 C-Reactive Protein 33.4 H Blood Type O NEGATIVE 07/26/20 17:51 Troponin I 0.038 Impressions: Chest/Abdomen CTA 07/26/20 17:20 IMPRESSION: 1. There is no pulmonary embolus. There is no aortic aneurysm or dissection. 2. Bilateral ground-glass opacification suggesting an atypical infectious/ inflammatory process such as COVID-19 pneumonia. Assessment and Plan - Diagnosis (1) Pneumonia due to COVID-19 virus Is this a current diagnosis for this admission?: Yes Plan: Persistent hypoxia, dependent on supplemental oxygen, desaturates on room air. Presented with symptoms/history consistent with covid-19 infection Tested positive for Covid-19 07/27/2019. Chest x-ray on admission showed bilat infiltrates CTA showed: viral pneumonia ground glass opacities Continue zinc, ascorbic acid, vitamin d, melatonin maintain magnesium of 2 mg/dL or higher Continue supplemental oxygen and BiPAP/CPAP as needed We will switch to full anticoagulation as patient may be developing right lower extremity DVT. Received consider ivermectin/doxycycline. We will switch to azithromycin and ceftriaxone given worsening respiratory symptoms. Has not decided if he wants convalescent plasma. Pharmacy has been consulted for possible remdesivir. (2) Acute hypoxemic respiratory failure Is this a current diagnosis for this admission?: Yes Plan: Still requiring supplemental oxygen, SPO2 WNL on 2 L nasal cannula. Due to Covid pneumonia as above Plan as per #1. (3) SULEMAN (obstructive sleep apnea) Is this a current diagnosis for this admission?: Yes Plan: Nocturnal CPAP. Outpatient follow-up for nocturnal polysomnography. Weight loss advised. (4) Obesity, Class III, BMI 40-49.9 (morbid obesity) Is this a current diagnosis for this admission?: Yes Plan: BMI 47.4. Diet and lifestyle modification recommended. (5) Hypertension Qualifiers: Hypertension type: essential hypertension Qualified Code(s): I10 - Essential (primary) hypertension Is this a current diagnosis for this admission?: Yes Plan: History of untreated hypertension. Continue lisinopril, adjusted as needed. As needed IV labetalol. - Time Time Spent with patient: 35 or more minutes Anticipated Discharge Disposition: Home, Self Care Anticipated Discharge Timeframe: within 72 hours
[2020-07-29] MEDS: CEFTRIAXONE 1 GM/D5W RTU 1 GM/50 ML RTUPB IV SCH (12:40)
--- NOTE | 2020-07-29 14:57 | RADIOLOGY REPORT (SQ) ---
EXAM DESCRIPTION: VENOUS UNILATERAL LOWER IMAGES COMPLETED DATE/TIME: 07/29/2020 1:34 pm REASON FOR STUDY: right calf pain, sob COMPARISON: None. TECHNIQUE: Dynamic and static rose scale and color images acquired of the right leg venous system. S elected spectral images acquired with additional compression and augmentation maneuvers. The contrala teral common femoral vein and saphenofemoral junction were also imaged. Images stored on PACS. LIMITATIONS: None. FINDINGS: COMMON FEMORAL: Normal phasicity, compression and augmentation. No visualized echogenic ma terial on rose scale. No defects on color images. FEMORAL: Normal compression and augmentation. No visualized echogenic material on rose scale. No defe cts on color images. POPLITEAL: Normal compression, augmentation. No visualized echogenic material on rose scale. No defec ts on color images. CALF VESSELS: There is echogenic noncompressible thrombus in the posterior tibial and peroneal veins below the knee. GSV and SSV: Normal compression, augmentation. No visualized echogenic material on rose scale. No def ects on color images. ANY DEEP VENOUS INSUFFICIENCY: Not evaluated. ANY EVIDENCE OF POPLITEAL CYST: No. OTHER: No other significant finding. CONTRALATERAL COMMON FEMORAL VEIN AND SAPHENOFEMORAL JUNCTION: Normal phasicity, compression and augmentation. No visualized echogenic material on rose scale. No de fects on color images. IMPRESSION: DVT in the posterior tibial and peroneal veins below the knee. COMMENT: Findings were called by the sonographic technologist to Dr. Echols at the time of examinati on. TECHNICAL DOCUMENTATION: JOB ID: [id number] 2010 [employer]- All Rights Reserved Reading location - IP/workstation name: [email or web address]
[2020-07-29] MEDS: OXYCODONE-ACETAMINOPHEN 5-325 MG TABLET PO PRN (16:06)
[2020-07-29] MEDS: MELATONIN 5 MG TABLET PO SCH (21:15)
[2020-07-29] MEDS: ENOXAPARIN SODIUM INJ 150 MG/1 ML DISP.SYRIN SUBCUT SCH (21:15)
[2020-07-30 05:48] LABS: HEMATOCRIT 43.4 % (37.9-51.0); HEMOGLOBIN 14.6 g/dL (13.5-17.0); MEAN CORPUSCULAR HEMOGLOBIN 28.5 pg (27.0-33.4); MEAN CORPUSCULAR HGB CONC 33.6 g/dL (32.0-36.0); MEAN CORPUSCULAR VOLUME 85 fl (80-97); PLATELET COUNT 145 10^3/uL (150-450); RED BLOOD COUNT 5.11 10^6/uL (4.35-5.55); RED CELL DISTRIBUTION WIDTH 13.8 % (11.5-14.0); WHITE BLOOD COUNT 9.5 10^3/uL (4.0-10.5)
[2020-07-30 06:17] LABS: BLOOD UREA NITROGEN 17 mg/dL (7-20); CALCIUM 8.2 mg/dL (8.4-10.2); GLUCOSE 105 mg/dL (75-110); POTASSIUM 4.5 mmol/L (3.6-5.0)
[2020-07-30 06:23] LABS: CARBON DIOXIDE 31 mmol/L (22-30); CHLORIDE 106 mmol/L (98-107)
[2020-07-30 06:43] LABS: ANION GAP 3 (5-19)
[2020-07-30 07:07] LABS: ABSOLUTE LYMPHOCYTES# (MANUAL) 1.8 10^3/uL (0.5-4.7); ABSOLUTE MONOCYTES # (MANUAL) 0.8 10^3/uL (0.1-1.4); BASOPHILS % (MANUAL) 0 % (0-2); EOSINOPHILS % (MANUAL) 0 % (0-6); LYMPHOCYTES % (MANUAL) 19 % (13-45); MONOCYTES % (MANUAL) 8 % (3-13); SEGMENTED NEUTROPHILS % (MAN) 73 % (42-78); TOTAL CELLS COUNTED 100
[2020-07-30 07:09] LABS: PLATELET COMMENT ADEQUATE; PLATELET GIANT PRESENT; PLATELET LARGE PRESENT; RBC MORPHOLOGY COMMENT NORMO-CYTIC/CHROMIC
[2020-07-30] MEDS: CEFTRIAXONE 1 GM/D5W RTU 1 GM/50 ML RTUPB IV SCH (09:12)
[2020-07-30] MEDS: ENOXAPARIN SODIUM INJ 150 MG/1 ML DISP.SYRIN SUBCUT SCH ×2 (09:12→21:08)
[2020-07-30] MEDS: DOCUSATE SODIUM 100 MG CAPSULE PO SCH (09:12)
[2020-07-30] MEDS: ZINC SULFATE 220 MG CAPSULE PO SCH (09:13)
[2020-07-30] MEDS: AZITHROMYCIN 250 MG TABLET PO SCH (09:13)
[2020-07-30] MEDS: LISINOPRIL 10 MG TABLET PO SCH (09:13)
[2020-07-30] MEDS: VITAMIN B COMPLEX TABLET PO SCH (09:13)
[2020-07-30] MEDS: ASCORBIC ACID 500 MG TABLET PO SCH ×2 (09:13→18:44)
[2020-07-30] MEDS: CHOLECALCIFEROL (D3) 1,000 UNIT (25 MCG) TABLET PO SCH (09:13)
[2020-07-30] MEDS: DEXAMETHASONE 4 MG TABLET PO SCH (09:13)
[2020-07-30] MEDS ORDERED: AMLODIPINE BESYLATE 5 MG TABLET PO SCH (10:00)
[2020-07-30] MEDS ORDERED: LABETALOL HCL INJ 20 MG/4 ML DISP.SYRIN IV PRN (11:05)
--- NOTE | 2020-07-30 12:10 | PDOC PROGRESS REPORT ---
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 Pt returned to ED late night 07/26 with persistent sx's and tachypnea, desat with ambulation to 88%. No acute findings on labs. CTPA showed likely viral pneumonia, no PE. Pt requiring 2L NC with sat 98%. Pt states he believes he has undiagnosed SULEMAN. Admitted for observation and further tx. 07/28/2020. No acute events overnight. Patient stated that he could not get much sleep last night, still complaining of some breath, nonproductive cough and generalized fatigue , otherwise denies any fever, chills, nausea, vomiting, diarrhea, constipation or any urinary symptoms. 07/29/2020. No acute events overnight, patient is still remains hypoxic on room air, saw patient this morning while getting out of the restroom, noted to be very tachypneic and dyspneic,looking tired, stating that he gets very short of breath with minimal exertion, he is also complaining of right calf swelling and pain, stating that for years ago he had a DVT in the right lower extremity and he thinks he may have another DVT, denies any fever, chills, nausea, vomiting, diarrhea, constipation or any urinary symptoms. 07/30/2020. No acute events overnight. Patient is still dependent on supplemental oxygen, complaining of shortness of breath on exertion and right calf pain, denies any fever, chills, nausea, vomiting, diarrhea, constipation. Having normal bowel and bladder movement. Reason For Visit: COVID-19, PNEUMONIA ACUTE HYPOXEMIC RESPIRATORY Physical Exam Vital Signs: Temp Pulse Resp BP Pulse Ox 98.4 F 102 H 40 H 165/107 H 96 07/30/20 11:20 07/30/20 11:20 07/30/20 11:20 07/30/20 11:20 07/30/20 11:20 Intake & Output 07/29/20 07/30/20 07/31/20 06:59 06:59 06:59 Intake Total 1512 1110 Output Total 250 775 Balance 1262 335 Weight 132.1 kg 132.1 kg General appearance: PRESENT: mild distress, well-developed, well-nourished Head exam: PRESENT: atraumatic, normocephalic Respiratory exam: PRESENT: clear to auscultation mateusz, other - Decreased air entry bilaterally. ABSENT: rales, rhonchi, wheezes Cardiovascular exam: PRESENT: RRR. ABSENT: diastolic murmur, rubs, systolic murmur GI/Abdominal exam: PRESENT: normal bowel sounds, soft. ABSENT: distended, guarding, mass, organolmegaly, rebound, tenderness Extremities exam: PRESENT: calf tenderness - Right calf swelling and tenderness, full ROM. ABSENT: clubbing, pedal edema Neurological exam: PRESENT: alert, awake, oriented to person, oriented to place, oriented to time, oriented to situation, CN II-XII grossly intact. ABSENT: motor sensory deficit Results Laboratory Results: 07/30/20 05:21 07/30/20 05:21 07/30/20 07/30/20 05:21 05:21 WBC 9.5 RBC 5.11 Hgb 14.6 Hct 43.4 MCV 85 MCH 28.5 MCHC 33.6 RDW 13.8 Plt Count 145 L Seg Neutrophils % Not Reportable Sodium 140.4 Potassium 4.5 Chloride 106 Carbon Dioxide 31 H Anion Gap 3 L BUN 17 Creatinine 0.78 Est GFR ( Amer) > 60 Glucose 105 Calcium 8.2 L 07/26/20 17:51 Troponin I 0.038 Impressions: Chest/Abdomen CTA 07/26/20 17:20 IMPRESSION: 1. There is no pulmonary embolus. There is no aortic aneurysm or dissection. 2. Bilateral ground-glass opacification suggesting an atypical infectious/ inflammatory process such as COVID-19 pneumonia. Venous Doppler Study 07/29/20 13:54 IMPRESSION: DVT in the posterior tibial and peroneal veins below the knee. Assessment and Plan - Diagnosis (1) Pneumonia due to COVID-19 virus Is this a current diagnosis for this admission?: Yes Plan: Persistent hypoxia, dependent on supplemental oxygen, desaturates on room air. Presented with symptoms/history consistent with covid-19 infection Tested positive for Covid-19 07/27/2019. Chest x-ray on admission showed bilat infiltrates CTA showed: viral pneumonia ground glass opacities Continue zinc, ascorbic acid, vitamin d, melatonin maintain magnesium of 2 mg/dL or higher Continue supplemental oxygen and BiPAP/CPAP as needed We will switch to full anticoagulation as patient may be developing right lower extremity DVT. Received consider ivermectin/doxycycline. We will switch to azithromycin and ceftriaxone given worsening respiratory symptoms. Pending convalescent plasma transfusion. Pharmacy has been consulted for possible remdesivir. (2) Right leg DVT Qualifiers: Affected thrombotic vein of extremity: tibial Is this a current diagnosis for this admission?: Yes Plan: Right leg below the knee DVT. 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 Was treated with short-term anticoagulants. Did not follow-up with PCP. Not sure if this is related to his underlying COVID-19 infection or patient has deficiency of clotting factors or hypercoagulable state. Continue therapeutic dose Lovenox, switch to oral anticoagulants upon discharge, follow-up with PCP. Patient will need to be worked up for any clotting factor deficiency or hypercoagulable state as outpatient. (3) Acute hypoxemic respiratory failure Is this a current diagnosis for this admission?: Yes Plan: Still requiring supplemental oxygen, SPO2 WNL on 2 L nasal cannula. Due to Covid pneumonia as above Plan as per #1. (4) SULEMAN (obstructive sleep apnea) Is this a current diagnosis for this admission?: Yes Plan: Nocturnal CPAP. Outpatient follow-up for nocturnal polysomnography. Weight loss advised. (5) Obesity, Class III, BMI 40-49.9 (morbid obesity) Is this a current diagnosis for this admission?: Yes Plan: BMI 47.4. Diet and lifestyle modification recommended. (6) Hypertension Qualifiers: Hypertension type: essential hypertension Qualified Code(s): I10 - Es sential (primary) hypertension Is this a current diagnosis for this admission?: Yes Plan: Improving. Not optimized. History of untreated hypertension. Continue 40 mg lisinopril, 5 mg amlodipine. Monitor vitals. Adjust meds as needed. As needed IV labetalol. - Time Time Spent with patient: 35 or more minutes Anticipated Discharge Disposition: Home, Self Care Anticipated Discharge Timeframe: within 48 hours
[2020-07-30] MEDS: OXYCODONE-ACETAMINOPHEN 5-325 MG TABLET PO PRN (15:45)
[2020-07-30] MEDS ORDERED: AMLODIPINE BESYLATE 5 MG TABLET PO ONE (16:00)
[2020-07-30] MEDS: MELATONIN 5 MG TABLET PO SCH (21:07)
[2020-07-31] MEDS: LABETALOL HCL INJ 20 MG/4 ML DISP.SYRIN IV PRN ×3 (00:34→17:13)
[2020-07-31 07:03] LABS: HEMATOCRIT 45.5 % (37.9-51.0); MEAN CORPUSCULAR VOLUME 85 fl (80-97); PLATELET COUNT 176 10^3/uL (150-450); RED BLOOD COUNT 5.36 10^6/uL (4.35-5.55); RED CELL DISTRIBUTION WIDTH 14.2 % (11.5-14.0); WHITE BLOOD COUNT 11.8 10^3/uL (4.0-10.5)
[2020-07-31] MEDS: CEFTRIAXONE 1 GM/D5W RTU 1 GM/50 ML RTUPB IV SCH (09:34)
[2020-07-31] MEDS: ENOXAPARIN SODIUM INJ 150 MG/1 ML DISP.SYRIN SUBCUT SCH ×2 (09:35→21:17)
[2020-07-31] MEDS: DOCUSATE SODIUM 100 MG CAPSULE PO SCH (09:36)
[2020-07-31] MEDS: VITAMIN B COMPLEX TABLET PO SCH (09:36)
[2020-07-31] MEDS: DEXAMETHASONE 4 MG TABLET PO SCH (09:36)
[2020-07-31] MEDS: ZINC SULFATE 220 MG CAPSULE PO SCH (09:37)
[2020-07-31] MEDS: CHOLECALCIFEROL (D3) 1,000 UNIT (25 MCG) TABLET PO SCH (09:37)
[2020-07-31] MEDS: AZITHROMYCIN 250 MG TABLET PO SCH (09:37)
[2020-07-31] MEDS: AMLODIPINE BESYLATE 5 MG TABLET PO SCH (09:37)
[2020-07-31] MEDS: ASCORBIC ACID 500 MG TABLET PO SCH ×2 (09:37→17:12)
[2020-07-31] MEDS: LISINOPRIL 10 MG TABLET PO SCH (09:37)
--- NOTE | 2020-07-31 10:05 | PDOC PROGRESS REPORT ---
Subjective Date:: 07/31/20 Subjective:: MESSI CHEEMA is a 39 year old male with no past medical history who presents with a 5 day history of progressive SOB/STOLL/dry cough which developed while he was in [place] for a hinduism conference, seen in ED on 1/6 AM and discharged home with suspected covid 19 PNA, given rx for steroids. Pt returned to ED late night 07/26 with persistent sx's and tachypnea, desat with ambulation to 88%. No acute findings on labs. CTPA showed likely viral pneumonia, no PE. Pt requiring 2L NC with sat 98%. Pt states he believes he has undiagnosed SULEMAN. Admitted for observation and further tx. 07/28/2020. No acute events overnight. Patient stated that he could not get much sleep last night, still complaining of some breath, nonproductive cough and generalized fatigue , otherwise denies any fever, chills, nausea, vomiting, diarrhea, constipation or any urinary symptoms. 07/29/2020. No acute events overnight, patient is still remains hypoxic on room air, saw patient this morning while getting out of the restroom, noted to be very tachypneic and dyspneic,looking tired, stating that he gets very short of breath with minimal exertion, he is also complaining of right calf swelling and pain, stating that for years ago he had a DVT in the right lower extremity and he thinks he may have another DVT, denies any fever, chills, nausea, vomiting, diarrhea, constipation or any urinary symptoms. 07/30/2020. No acute events overnight. Patient is still dependent on supplemental oxygen, complaining of shortness of breath on exertion and right calf pain, denies any fever, chills, nausea, vomiting, diarrhea, constipation. Having normal bowel and bladder movement. 07/31/2020. No acute events overnight. Patient is still oxygen dependent and complaining of dyspnea on exertion and right lower extremity pain. Denies any fever, chills, nausea, vomiting. Having normal bowel and bladder movements. Reason For Visit: COVID-19, PNEUMONIA ACUTE HYPOXEMIC RESPIRATORY Physical Exam Vital Signs: Temp Pulse Resp BP Pulse Ox 98.4 F 99 20 174/124 H 95 07/31/20 08:38 07/31/20 09:51 07/31/20 09:38 07/31/20 09:51 07/31/20 09:51 Intake & Output 07/30/20 07/31/20 08/01/20 06:59 06:59 06:59 Intake Total 1110 1360 0 Output Total 775 1200 Balance 335 160 0 Weight 132.1 kg General appearance: PRESENT: no acute distress, morbidly obese, well-developed, well-nourished Head exam: PRESENT: atraumatic, normocephalic Respiratory exam: PRESENT: clear to auscultation mateusz, decreased breath sounds. ABSENT: rales, rhonchi, wheezes Cardiovascular exam: PRESENT: RRR. ABSENT: diastolic murmur, rubs, systolic murmur GI/Abdominal exam: PRESENT: normal bowel sounds, soft. ABSENT: distended, guarding, mass, organolmegaly, rebound, tenderness Extremities exam: PRESENT: full ROM. ABSENT: calf tenderness, clubbing, pedal edema Musculoskeletal exam: PRESENT: tenderness - Right calf Neurological exam: PRESENT: alert, awake, oriented to person, oriented to place, oriented to time, oriented to situation, CN II-XII grossly intact. ABSENT: motor sensory deficit Results Laboratory Results: 07/31/20 06:24 07/30/20 05:21 07/29/20 07/31/20 09:08 06:24 WBC 11.8 H RBC 5.36 Hgb 15.0 Hct 45.5 MCV 85 MCH 28.0 MCHC 33.0 RDW 14.2 H Plt Count 176 Blood Type O NEGATIVE 07/26/20 17:51 Troponin I 0.038 Impressions: Chest/Abdomen CTA 07/26/20 17:20 IMPRESSION: 1. There is no pulmonary embolus. There is no aortic aneurysm or dissection. 2. Bilateral ground-glass opacification suggesting an atypical infectious/ inflammatory process such as COVID-19 pneumonia. Venous Doppler Study 07/29/20 13:54 IMPRESSION: DVT in the posterior tibial and peroneal veins below the knee. Assessment and Plan - Diagnosis (1) Pneumonia due to COVID-19 virus Is this a current diagnosis for this admission?: Yes Plan: Persistent hypoxia, dependent on supplemental oxygen, desaturates on room air. Presented with symptoms/history consistent with covid-19 infection Tested positive for Covid-19 07/27/2019. Chest x-ray on admission showed bilat infiltrates CTA showed: viral pneumonia ground glass opacities Continue zinc, ascorbic acid, vitamin d, melatonin maintain magnesium of 2 mg/dL or higher Continue supplemental oxygen and BiPAP/CPAP as needed We will switch to full anticoagulation as patient may be developing right lower extremity DVT. Received consider ivermectin/doxycycline. Continue azithromycin and ceftriaxone. Status post convalescent plasma transfusion 07/31/2020. Pharmacy has been consulted for possible remdesivir. (2) Right leg DVT Qualifiers: Affected thrombotic vein of extremity: tibial Is this a current diagnosis for this admission?: Yes Plan: Right leg below the knee DVT. 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 Was treated with short-term anticoagulants. Did not follow-up with PCP. Not sure if this is related to his underlying COVID-19 infection or patient has deficiency of clotting factors or hypercoagulable state. Continue therapeutic dose Lovenox, switch to oral anticoagulants upon discharge, follow-up with PCP. Patient will need to be worked up for any clotting factor deficiency or hypercoagulable state as outpatient. (3) Acute hypoxemic respiratory failure Is this a current diagnosis for this admission?: Yes Plan: Still requiring supplemental oxygen, SPO2 WNL on 2 L nasal cannula. Due to Covid pneumonia as above Plan as per #1. (4) SULEMAN (obstructive sleep apnea) Is this a current diagnosis for this admission?: Yes Plan: Nocturnal CPAP. Outpatient follow-up for nocturnal polysomnography. Weight loss advised. (5) Obesity, Class III, BMI 40-49.9 (morbid obesity) Is this a current diagnosis for this admission?: Yes Plan: BMI 47.4. Diet and lifestyle modification recommended. (6) Hypertension Qualifiers: Hypertension type: essential hypertension Qualified Code(s): I10 - Essential (primary) hypertension Is this a current diagnosis for this admission?: Yes Plan: Much improved. Euvolemic. History of untreated hypertension. Continue 40 mg lisinopril, 10 mg amlodipine. Monitor vitals. Adjust meds as needed. As needed IV labetalol. - Time Time Spent with patient: 25-34 minutes Anticipated Discharge Disposition: Home, Self Care Anticipated Discharge Timeframe: within 72 hours
[2020-07-31 14:38] LABS: APPEARANCE,URINE CLEAR; BILIRUBIN,URINE NEGATIVE (NEGATIVE); GLUCOSE, URINE NEGATIVE (NEGATIVE); KETONES,URINE NEGATIVE (NEGATIVE); LEUKOCYTE ESTERASE,URINE NEGATIVE (NEGATIVE); NITRITE,URINE NEGATIVE (NEGATIVE); PROTEIN,URINE NEGATIVE (NEGATIVE); URINE SPECIFIC GRAVITY 1.023
[2020-07-31 14:48] LABS: COLOR,URINE YELLOW
[2020-07-31] MEDS: MELATONIN 5 MG TABLET PO SCH (21:17)
[2020-08-01] MEDS: ZINC SULFATE 220 MG CAPSULE PO SCH (09:42)
[2020-08-01] MEDS: FUROSEMIDE 20 MG TABLET PO SCH (09:42)
[2020-08-01] MEDS: LISINOPRIL 10 MG TABLET PO SCH (09:43)
[2020-08-01] MEDS: AZITHROMYCIN 250 MG TABLET PO SCH (09:43)
[2020-08-01] MEDS: ASCORBIC ACID 500 MG TABLET PO SCH ×2 (09:43→17:38)
[2020-08-01] MEDS: AMLODIPINE BESYLATE 5 MG TABLET PO SCH (09:43)
[2020-08-01] MEDS: CHOLECALCIFEROL (D3) 1,000 UNIT (25 MCG) TABLET PO SCH (09:43)
[2020-08-01] MEDS: VITAMIN B COMPLEX TABLET PO SCH (09:44)
[2020-08-01] MEDS: DEXAMETHASONE 4 MG TABLET PO SCH (09:44)
[2020-08-01] MEDS: ENOXAPARIN SODIUM INJ 150 MG/1 ML DISP.SYRIN SUBCUT SCH ×2 (09:45→21:09)
[2020-08-01] MEDS: CEFTRIAXONE SODIUM 1,000 MG in DEXTROSE 5%-WATER 50 ML IV SCH (10:25)
--- NOTE | 2020-08-01 19:44 | PDOC PROGRESS REPORT ---
Subjective Date:: 08/01/20 Subjective:: NAEO. He is feeling better every day. He is actively being weaned down oxygen therapy, tolerating well. Reason For Visit: COVID-19, PNEUMONIA ACUTE HYPOXEMIC RESPIRATORY Physical Exam Vital Signs: Temp Pulse Resp BP Pulse Ox 98.7 F 98 40 H 168/97 H 91 L 08/01/20 17:43 08/01/20 17:43 08/01/20 03:59 08/01/20 17:43 08/01/20 17:43 Intake & Output 07/31/20 08/01/20 08/02/20 06:59 06:59 06:59 Intake Total 1360 784 Output Total 1200 1400 Balance 160 -616 General appearance: PRESENT: no acute distress, cooperative Eye exam: ABSENT: scleral icterus Mouth exam: PRESENT: moist Throat exam: ABSENT: post pharyngeal erythema Neck exam: ABSENT: JVD Respiratory exam: PRESENT: clear to auscultation mateusz. ABSENT: tachypnea Cardiovascular exam: PRESENT: RRR GI/Abdominal exam: PRESENT: normal bowel sounds, soft. ABSENT: tenderness Extremities exam: ABSENT: pedal edema Musculoskeletal exam: PRESENT: ambulatory Neurological exam: PRESENT: alert, awake, oriented to person, oriented to place, oriented to time, oriented to situation Psychiatric exam: PRESENT: appropriate affect Skin exam: ABSENT: jaundice Results Laboratory Results: 07/31/20 06:24 07/30/20 05:21 07/26/20 20:52 Blood Blood Culture - Final NO GROWTH IN 5 DAYS 07/26/20 17:51 Blood Blood Culture - Final NO GROWTH IN 5 DAYS 07/26/20 17:51 Troponin I 0.038 Impressions: Chest/Abdomen CTA 07/26/20 17:20 IMPRESSION: 1. There is no pulmonary embolus. There is no aortic aneurysm or dissection. 2. Bilateral ground-glass opacification suggesting an atypical infectious/ inflammatory process such as COVID-19 pneumonia. Venous Doppler Study 07/29/20 13:54 IMPRESSION: DVT in the posterior tibial and peroneal veins below the knee. Assessment and Plan - Diagnosis (1) Acute hypoxemic respiratory failure Is this a current diagnosis for this admission?: Yes (2) Hypertension Qualifiers: Hypertension type: essential hypertension Qualified Code(s): I10 - Essential (primary) hypertension Is this a current diagnosis for this admission?: Yes (3) Obesity, Class III, BMI 40-49.9 (morbid obesity) Is this a current diagnosis for this admission?: Yes (4) Pneumonia due to COVID-19 virus Is this a current diagnosis for this admission?: Yes (5) Right leg DVT Qualifiers: Affected thrombotic vein of extremity: tibial Is this a current diagnosis for this admission?: Yes - Plan Summary Summary: MESSI CHEEMA is a 39 year old male with no past medical history who presents with a 5 day history of progressive SOB/STOLL/dry cough which developed while 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 Pt returned to ED late night 07/26 with persistent sx's and tachypnea, desat with ambulation to 88%. No acute findings on labs. CTPA showed likely viral pneumonia, no PE. Pneumonia due to COVID-19 virus Persistent hypoxia, dependent on supplemental oxygen, desaturates on room air. Tested positive for Covid-19 07/27/2019. Chest x-ray on admission showed bilat infiltrates CTA showed: viral pneumonia, ground glass opacities Continue zinc, ascorbic acid, vitamin d, melatonin, maintain magnesium of 2 mg/dL or higher Continue supplemental oxygen and wean down as tolerated Received ivermectin/doxycycline. Continue azithromycin and ceftriaxone. Status post convalescent plasma transfusion 07/31/2020. 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 Was treated with short-term anticoagulants. Likely related to his underlying COVID-19 infection and morbid obesity. Continue therapeutic dose Lovenox, switch to oral anticoagulants upon discharge. He is low risk for bleeding complications, and will likely need to continue life-long AC given history of DVT x2. Refer to hematology on discharge. Acute hypoxemic respiratory failure Still requiring supplemental oxygen, but weaning down as tolerated. Due to Covid pneumonia as above Plan as per #1. Obesity, Class III, BMI 40-49.9 (morbid obesity) Diet and lifestyle modification recommended. Outpatient sleep study recommended given body habitus, history of poor nighttime sleep and daytime hypersomnolence. Essential Hypertension: Much improved but remains elevated. Continue 40 mg lisinopril, 10 mg amlodipine. Add Lasix 20 mg daily and Imdur 60 mg HS. As needed IV labetalol. - Time Time Spent with patient: 35 or more minutes Anticipated Discharge Disposition: Home, Self Care Anticipated Discharge Timeframe: within 24 hours
[2020-08-01] MEDS: MELATONIN 5 MG TABLET PO SCH (21:10)
[2020-08-01] MEDS ORDERED: ISOSORBIDE MONONITRATE 60 MG TAB.ER.24H PO SCH (22:00)
[2020-08-02 06:55] LABS: HEMATOCRIT 44.1 % (37.9-51.0); HEMOGLOBIN 14.5 g/dL (13.5-17.0); MEAN CORPUSCULAR HGB CONC 32.8 g/dL (32.0-36.0); MEAN CORPUSCULAR VOLUME 85 fl (80-97); PLATELET COUNT 199 10^3/uL (150-450); RED BLOOD COUNT 5.16 10^6/uL (4.35-5.55); WHITE BLOOD COUNT 12.8 10^3/uL (4.0-10.5)
[2020-08-02 07:19] LABS: ANION GAP 5 (5-19); BLOOD UREA NITROGEN 19 mg/dL (7-20); CALCIUM 8.8 mg/dL (8.4-10.2); CARBON DIOXIDE 27 mmol/L (22-30); CHLORIDE 105 mmol/L (98-107); GLUCOSE 100 mg/dL (75-110); POTASSIUM 4.8 mmol/L (3.6-5.0)
[2020-08-02] MEDS ORDERED: APIXABAN 5 MG TABLET PO SCH (10:00)
[2020-08-02] MEDS: CEFTRIAXONE SODIUM 1,000 MG in DEXTROSE 5%-WATER 50 ML IV SCH (10:15)
[2020-08-02] MEDS: VITAMIN B COMPLEX TABLET PO SCH (10:15)
[2020-08-02] MEDS: LISINOPRIL 10 MG TABLET PO SCH (10:15)
[2020-08-02] MEDS: DEXAMETHASONE 4 MG TABLET PO SCH (10:15)
[2020-08-02] MEDS: ASCORBIC ACID 500 MG TABLET PO SCH (10:15)
[2020-08-02] MEDS: FUROSEMIDE 20 MG TABLET PO SCH (10:15)
[2020-08-02] MEDS: ZINC SULFATE 220 MG CAPSULE PO SCH (10:30)
[2020-08-02] MEDS: CHOLECALCIFEROL (D3) 1,000 UNIT (25 MCG) TABLET PO SCH (10:30)
[2020-08-02] MEDS: AMLODIPINE BESYLATE 5 MG TABLET PO SCH (13:57)
[2020-08-02 14:26] VITALS: BP 153/101
--- NOTE | 2020-08-02 20:17 | PDOC DISCHARGE SUMMARY ---
Impression - Admit/DC Date/PCP Admission Date/Primary Care Provider: 07/28/20 14:59 Discharge Date: 08/02/20 - Discharge Diagnosis (1) Acute hypoxemic respiratory failure Is this a current diagnosis for this admission?: Yes (2) Hypertension Is this a current diagnosis for this admission?: Yes (3) Obesity, Class III, BMI 40-49.9 (morbid obesity) Is this a current diagnosis for this admission?: Yes (4) Pneumonia due to COVID-19 virus Is this a current diagnosis for this admission?: Yes (5) Right leg DVT Is this a current diagnosis for this admission?: Yes - Assessment Summary: MESSI CHEEMA is a 39 year old male with no past medical history who presents with a 5 day history of progressive SOB/STOLL/dry cough which developed while 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 Pt returned to ED late night 07/26 with persistent sx's and tachypnea, desat with ambulation to 88%. No acute findings on labs. CTPA showed likely viral pneumonia, no PE. Pneumonia due to COVID-19 virus Tested positive for Covid-19 07/27/2019. CTA showed: viral pneumonia, ground glass opacities, no PE Received ivermectin/antibiotics and convalescent plasma transfusion. Successfully weaned off O2 and saturating well on RA on the day of discharge. 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 Was treated with short-term anticoagulants. This episode was likely related to his underlying COVID-19 infection and morbid obesity. He is low risk for bleeding complications, and will likely need to continue life-long AC given history of DVT x2. Discharged on Eliquis. Obesity, Class III, BMI 40-49.9 (morbid obesity) Diet and lifestyle modification recommended. Outpatient sleep study recommended given body habitus, history of poor nighttime sleep and daytime hypersomnolence. Essential Hypertension: previously untreated. He was started on a new BP regimen which has helped control his BP. Patient was advised to follow up with PCP within 1-2 weeks for ongoing management of HTN, DVT. - Additional Information Resuscitation Status: Full Code Discharge Diet: Cardiac Discharge Activity: Activity As Tolerated, Keep Legs Elevated Referrals: THANIA QUINTANILLA, JULIETTE-C [[facility]] - 08/10/20 10:00 am Prescriptions: Apixaban [Eliquis 5 mg Tablet] 5 mg PO BID #60 tablet Hydrochlorothiazide [Hydrodiuril 12.5 mg Tablet] 12.5 mg PO QAM #30 capsule Isosorbide Mononitrate [Imdur 60 mg Tablet.er] 60 mg PO DAILY #30 tab.sr.24h Amlodipine Besylate [Norvasc 10 mg Tablet] 10 mg PO DAILY #30 tablet Lisinopril [Zestril] 40 mg PO DAILY #30 tablet Home Medications: Amlodipine Besylate [Norvasc 10 mg Tablet] 10 mg PO DAILY #30 tablet 08/02/20 Apixaban [Eliquis 5 mg Tablet] 5 mg PO BID #60 tablet 08/02/20 Hydrochlorothiazide [Hydrodiuril 12.5 mg Tablet] 12.5 mg PO QAM #30 capsule 08/02/20 Isosorbide Mononitrate [Imdur 60 mg Tablet.er] 60 mg PO DAILY #30 tab.sr.24h 08/02/20 Lisinopril [Zestril] 40 mg PO DAILY #30 tablet 08/02/20 History of Present Illiness History of Present Illness: MESSI CHEEMA is a 39 year old male Physical Exam Vital Signs: Temp Pulse Resp BP Pulse Ox 98.3 F 91 32 H 158/92 H 96 08/02/20 14:15 08/02/20 14:15 08/02/20 14:15 08/02/20 14:15 08/02/20 14:15 Intake & Output 08/01/20 08/02/20 08/03/20 06:59 06:59 06:59 Intake Total 784 718 Output Total 1400 1000 Balance -616 -856 Results Laboratory Results: WBC 12.8 10^3/uL (4.0-10.5) H 08/02/20 06:14 RBC 5.16 10^6/uL (4.35-5.55) 08/02/20 06:14 Hgb 14.5 g/dL (13.5-17.0) 08/02/20 06:14 Hct 44.1 % (37.9-51.0) 08/02/20 06:14 MCV 85 fl (80-97) 08/02/20 06:14 MCH 28.0 pg (27.0-33.4) 08/02/20 06:14 MCHC 32.8 g/dL (32.0-36.0) 08/02/20 06:14 RDW 14.0 % (11.5-14.0) 08/02/20 06:14 Plt Count 199 10^3/uL (150-450) 08/02/20 06:14 Lymph % (Auto) Not Reportable 07/30/20 05:21 [place] % (Auto) Not Reportable 07/30/20 05:21 Eos % (Auto) Not Reportable 07/30/20 05:21 Baso % (Auto) Not Reportable 07/30/20 05:21 Absolute Neuts (auto) Not Reportable 07/30/20 05:21 Absolute Lymphs (auto) Not Reportable 07/30/20 05:21 Absolute Monos (auto) Not Reportable 07/30/20 05:21 Absolute Eos (auto) Not Reportable 07/30/20 05:21 Absolute Basos (auto) Not Reportable 07/30/20 05:21 Total Counted 100 07/30/20 05:21 Seg Neutrophils % Not Reportable 07/30/20 05:21 Seg Neuts % (Manual) 73 % (42-78) 07/30/20 05:21 Lymphocytes % (Manual) 19 % (13-45) 07/30/20 05:21 Monocytes % (Manual) 8 % (3-13) 07/30/20 05:21 Eosinophils % (Manual) 0 % (0-6) 07/30/20 05:21 Basophils % (Manual) 0 % (0-2) 07/30/20 05:21 Abs Neuts (Manual) 6.9 10^3/uL (1.7-8.2) 07/30/20 05:21 Abs Lymphs (Manual) 1.8 10^3/uL (0.5-4.7) 07/30/20 05:21 Abs Monocytes (Manual) 0.8 10^3/uL (0.1-1.4) 07/30/20 05:21 Absolute Eos (Manual) 0.0 10^3/uL (0.0-0.6) 07/30/20 05:21 Abs Basophils (Manual) 0.0 10^3/uL (0.0-0.2) 07/30/20 05:21 Large Platelets PRESENT 07/30/20 05:21 Giant Platelets PRESENT 07/30/20 05:21 Platelet Comment ADEQUATE 07/30/20 05:21 RBC Morph Comment NORMO-CYTIC/CHROMIC 07/30/20 05:21 PT 14.1 SEC (11.4-15.4) 07/26/20 17:51 INR 1.07 07/26/20 17:51 APTT 32.3 SEC (23.5-35.8) 07/26/20 17:51 D-Dimer 0.83 ug/mL (0.00-0.50) H 07/27/20 06:25 Sodium 137.3 mmol/L (137-145) 08/02/20 06:14 Potassium 4.8 mmol/L (3.6-5.0) 08/02/20 06:14 Chloride 105 mmol/L (98-107) 08/02/20 06:14 Carbon Dioxide 27 mmol/L (22-30) 08/02/20 06:14 Anion Gap 5 (5-19) 08/02/20 06:14 BUN 19 mg/dL (7-20) 08/02/20 06:14 Creatinine 0.67 mg/dL (0.52-1.25) 08/02/20 06:14 Est GFR ( Amer) > 60 (>60) 08/02/20 06:14 Est GFR (MDRD) Non-Af > 60 (>60) 08/02/20 06:14 Glucose 100 mg/dL (75-110) 08/02/20 06:14 POC Glucose 92 mg/dL (70-110) 08/01/20 11:48 Lactic Acid 1.0 mmol/L (0.7-2.1) 07/26/20 20:52 Calcium 8.8 mg/dL (8.4-10.2) 08/02/20 06:14 Phosphorus 3.4 mg/dL (2.5-4.5) 07/28/20 06:07 Magnesium 2.1 mg/dL (1.6-2.3) 08/02/20 06:14 Ferritin 523.00 ng/mL (17.9-464.0) H 07/27/20 06:25 Total Bilirubin 1.0 mg/dL (0.2-1.3) 07/26/20 17:51 Direct Bilirubin 0.4 mg/dL (0.0-0.4) 07/26/20 17:51 Neonat Total Bilirubin Not Reportable 07/26/20 17:51 Neonat Direct Bilirubin Not Reportable 07/26/20 17:51 Neonat Indirect Bili Not Reportable 07/26/20 17:51 AST 59 U/L (17-59) 07/26/20 17:51 ALT 58 U/L (<50) H 07/26/20 17:51 Alkaline Phosphatase 75 U/L (38-126) 07/26/20 17:51 Troponin I 0.038 ng/mL 07/26/20 17:51 C-Reactive Protein 33.4 mg/L (<10.0) H 07/29/20 05:26 Total Protein 7.5 g/dL (6.3-8.2) 07/26/20 17:51 Albumin 3.7 g/dL (3.5-5.0) 07/26/20 17:51 Urine Color YELLOW 07/31/20 13:27 Urine Appearance CLEAR 07/31/20 13:27 Urine pH 7.0 (5.0-9.0) 07/31/20 13:27 Ur Specific [place] 1.023 07/31/20 13:27 Urine Protein NEGATIVE mg/dL (NEGATIVE) 07/31/20 13:27 Urine Glucose (UA) NEGATIVE mg/dL (NEGATIVE) 07/31/20 13:27 Urine Ketones NEGATIVE mg/dL (NEGATIVE) 07/31/20 13:27 Urine Blood NEGATIVE (NEGATIVE) 07/31/20 13:27 Urine Nitrite NEGATIVE (NEGATIVE) 07/31/20 13:27 Urine Nitrite (Reflex) NEGATIVE (NEGATIVE) 07/27/20 15:30 Urine Bilirubin NEGATIVE (NEGATIVE) 07/31/20 13:27 Urine Urobilinogen 2.0 mg/dL (<2.0) H 07/31/20 13:27 Ur Leukocyte Esterase NEGATIVE (NEGATIVE) 07/31/20 13:27 Leukocyte Esterase Rfl NEGATIVE (NEGATIVE) 07/27/20 15:30 Urine WBC (Auto) 1 /HPF 07/31/20 13:27 Urine RBC (Auto) 1 /HPF 07/31/20 13:27 U Hyaline Cast (Auto) 1 /LPF 07/31/20 13:27 Urine WBC (Reflex) 1 /HPF 07/27/20 15:30 Squamous Epi Cells Auto <1 /HPF 07/31/20 13:27 Urine Mucus (Auto) RARE /LPF 07/31/20 13:27 Urine Ascorbic Acid 40 (NEGATIVE) H 07/31/20 13:27 Blood Type O NEGATIVE 07/29/20 09:08 07/26/20 17:51 Troponin I 0.038 Impressions: Chest/Abdomen CTA 07/26/20 17:20 IMPRESSION: 1. There is no pulmonary embolus. There is no aortic aneurysm or dissection. 2. Bilateral ground-glass opacification suggesting an atypical infectious/ inflammatory process such as COVID-19 pneumonia. Venous Doppler Study 07/29/20 13:54 IMPRESSION: DVT in the posterior tibial and peroneal veins below the knee. Stroke Is this a Stroke Patient?: No Acute Heart Failure Is this a Heart Failure Patient?: No
== END 2020-08-02 16:22 | disposition home or self-care (01) | DRG 177 ==
LOC: ER 15:54 → EH 07-27 00:42 → INTOOBSV 07-27 00:42 → 3S 07-27 04:35 → OBSVTOIN 07-28 14:59
PROVIDERS: ADMIT Internal Medicine; ATTEND Hospitalist
PROC: XW13325 Transfusion of Convalescent Plasma (Nonautologous) into Peripheral Vein, Percutaneous Approach, New Technology Group 5 (ICD-10-PCS; principal; 2020-07-31)
PROC: 3E02340 Introduction of Influenza Vaccine into Muscle, Percutaneous Approach (ICD-10-PCS; 2020-08-02)
DX: U07.1 COVID-19 (principal); J12.82 Pneumonia due to coronavirus disease 2019; J96.01 Acute respiratory failure with hypoxia; I82.441 Acute embolism and thrombosis of right tibial vein; Z68.42 Body mass index [BMI] 45.0-49.9, adult; G47.33 Obstructive sleep apnea (adult) (pediatric); I10 Essential (primary) hypertension; E66.01 Morbid (severe) obesity due to excess calories; Z23 Encounter for immunization; Z79.899 Other long term (current) drug therapy; Z82.49 Family history of ischemic heart disease and other diseases of the circulatory system
CPT/HCPCS: 36415; 36430; 71275; 80048; 80053; 81001; 82728; 82962; 83605; 83735; 84100; 84484; 85025; 85027; 85379; 85610; 85730; 86140; 86900; 86901; 87040; 90471; 90686; 93005; 93010; 93971; 96361; 96374; 96375; 99285; G0008; G0378; J0610; J0696; J1100; J1650; J1885; J2060; J2920; J3490; J7030; J7060; J8540